=== PATIENT | female | born 1980 | race Caucasian/White ===

== ENCOUNTER 2017-04-15 19:32 | Emergency (ER) | payer OTHER ==
[~2017-04-15] VITALS: Wt 108.9 kg
[~2017-04-15 19:32] MED LIST: ALBUTEROL0.09 MG/A2 IH; AMOXICILLIN500 MG PO; AUGMENTIN 500 M1 TAB PO; CLINDAMYCIN HC300 MG PO; CLINDAMYCIN150 MG PO; HYDROCODONE BIT1 T11 PO; KEFLEX500 MG PO; LISINOPRIL-HCTZ 20-1; LISINOPRIL-HYDR1 TA4 PO; MOTRIN800 MG PO; Motrin,Rufen800 MG PO; NAPROSYN500 MG PO; PEN-VEE K500 MG PO; PRENATAL1 TA1 PO; TYLENOL 8 HOUR650 MG PO; ZESTRIL20 MG PO; ZYRTEC10 M1 PO
[2017-04-15] MEDS ORDERED: NAPROSYN500 MG PO (19:54)
[2017-04-15] MEDS ORDERED: MEDROL DOSEPAK4 MG PO (19:54)
[2017-04-15] MEDS ORDERED: CYCLOBENZAPRINE10 MG PO (19:54)
== END 2017-04-15 19:59 | disposition home or self-care (01) ==
LOC: ED 19:32
DX: M79.605 Pain in left leg (principal); M25.552 Pain in left hip; F17.200 Nicotine dependence, unspecified, uncomplicated

== ENCOUNTER 2021-02-28 18:21 | Emergency (ER) | payer SELFPAY ==
[~2021-02-28] VITALS: Wt 121.6 kg
[~2021-02-28 18:21] MED LIST changes: +CYCLOBENZAPRINE10 MG PO; +MEDROL DOSEPAK4 MG PO
[2021-02-28 19:03] LABS: BASO # 0.1 10*3/uL (0.0-0.1); BASO % 0.6 % (0.0-1.0); EOS # 0.1 10*3/uL (0.0-0.4); EOS % 1.1 % (1.0-4.0); HEMATOCRIT 48.2 % (37.0-47.0); LYMPH # 2.1 10*3/uL (1.3-4.4); LYMPH % 26.6 % (27.0-41.0); MEAN CELL VOLUME 87.6 fl (81.0-99.0); MEAN CORPUSCULAR HGB 30.5 pg (27.0-31.0); MEAN CORPUSCULAR HGB CONC 34.9 g/dl (33.0-37.0); MONO # 0.7 10*3/uL (0.1-1.0); MONO % 9.1 % (3.0-9.0); NEUT % 62.3 % (47.0-73.0); PLATELET COUNT AUTOMATED 194 10*3/uL (130-400); RED CELL DISTRI WIDTH 11.9 % (0-14.5)
[2021-02-28 19:20] LABS: ALBUMIN 3.3 gm/dl (3.1-4.5); ALKALINE PHOSPHATASE 118 U/L (45-117); BUN 8 mg/dl (7-24); CHLORIDE 99 mmol/L (98-107); CREATININE 0.55 mg/dL (0.55-1.02); POTASSIUM 3.8 mmol/L (3.5-5.1); SGOT/AST 39 IU/L (3-35); SGPT/ALT 59 U/L (12-78); SODIUM 133 mmol/L (136-145); TOTAL PROTEIN 7.9 gm/dL (6.4-8.2)
[2021-02-28 19:23] LABS: TROPONIN I < 0.015 ng/ml (<0.045)
[2021-02-28 20:09] LABS: BILIRUBIN Negative (Negative); BLOOD 3+ (Negative); CLARITY Clear (Clear); COLOR Yellow (Yellow); GLUCOSE 3+ (Negative); KETONE Trace (Negative); LEUKO ESTERASE 1+ (Negative); NITRITE Negative (Negative); SPECIFIC GRAVITY 1.025 (1.001-1.030)
[2021-02-28 20:32] LABS: BACTERIA 3+
== END 2021-02-28 20:57 | disposition home or self-care (01) ==
LOC: ED 18:21
PROVIDERS: Physician Assistant
DX: R73.9 Hyperglycemia, unspecified (principal); R42 Dizziness and giddiness; Z79.899 Other long term (current) drug therapy

== ENCOUNTER 2021-05-09 04:42 | Emergency (ER) | payer SELFPAY ==
[~2021-05-09] VITALS: Ht 172.7 cm; Wt 64.4 kg
== END 2021-05-09 06:51 | disposition home or self-care (01) ==
LOC: ED 04:42
DX: F41.9 Anxiety disorder, unspecified (principal)

== ENCOUNTER 2021-09-05 11:15 | Emergency (ER) | payer SELFPAY ==
[~2021-09-05] VITALS: Wt 92.5 kg
[2021-09-05 12:08] LABS: EOS % 0.3 % (1.0-4.0); HEMATOCRIT 43.7 % (37.0-47.0); LYMPH % 27.2 % (27.0-41.0); MEAN CELL VOLUME 86.9 fl (81.0-99.0); MEAN CORPUSCULAR HGB 30.4 pg (27.0-31.0); MEAN PLATELET VOLUME 9.5 fl (9.6-12.3); MONO # 0.6 10*3/uL (0.1-1.0); MONO % 15.7 % (3.0-9.0); NEUT # 2.1 10*3/uL (2.3-7.9); NEUT % 55.3 % (47.0-73.0); PLATELET COUNT AUTOMATED 213 10*3/uL (130-400); RED BLOOD COUNT 5.03 10*6/uL (4.10-5.10); RED CELL DISTRI WIDTH 12.1 % (0-14.5); WHITE BLOOD COUNT 3.8 10*3/uL (4.8-10.8)
[2021-09-05 12:23] LABS: ALKALINE PHOSPHATASE 84 U/L (45-117); BUN 10 mg/dl (7-24); CHLORIDE 101 mmol/L (98-107); CREATININE 0.55 mg/dL (0.55-1.02); POTASSIUM 3.9 mmol/L (3.5-5.1); SGOT/AST 21 IU/L (3-35); SGPT/ALT 35 U/L (12-78); SODIUM 132 mmol/L (136-145); TOTAL PROTEIN 8.4 gm/dL (6.4-8.2)
== END 2021-09-05 14:48 | disposition home or self-care (01) ==
LOC: ED 11:15
PROVIDERS: Physician Assistant
DX: R05.9 Cough, unspecified (principal); Z20.822 Contact with and (suspected) exposure to COVID-19; R06.02 Shortness of breath

== ENCOUNTER 2024-01-20 12:06 | Emergency (ER) | payer MEDICAID ==
[~2024-01-20] VITALS: Ht 172.7 cm; Wt 104.3 kg
[2024-01-20] MEDS ORDERED: CLINDAMYCIN HC300 MG PO (14:01)
== END 2024-01-20 14:14 | disposition home or self-care (01) ==
LOC: ED 12:06
DX: K04.7 Periapical abscess without sinus (principal); J45.909 Unspecified asthma, uncomplicated; I10 Essential (primary) hypertension; Z90.89 Acquired absence of other organs

== ENCOUNTER 2025-05-14 11:39 | Emergency (ER) | payer OTHER ==
[~2025-05-14] VITALS: Ht 170.1 cm; Wt 108.9 kg
[2025-05-14] MEDS ORDERED: IOHEXOL 300 MG/ML 100 ML VIAL IV ONE (12:35)
[2025-05-14] MEDS ORDERED: SODIUM CHLORIDE 0.9% 1,000 ML IV ONE (12:35)
[2025-05-14 12:45] LABS: BASO # 0.0 10*3/uL (0.0-0.1); BASO % 0.5 % (0.0-1.0); EOS # 0.0 10*3/uL (0.0-0.4); EOS % 0.5 % (1.0-4.0); MEAN CELL VOLUME 92.4 fl (81.0-99.0); MEAN CORPUSCULAR HGB 31.3 pg (27.0-31.0); MEAN PLATELET VOLUME 10.2 fl (9.6-12.3); MONO # 0.6 10*3/uL (0.1-1.0); MONO % 9.0 % (3.0-9.0); NEUT # 4.1 10*3/uL (2.3-7.9); NEUT % 65.5 % (47.0-73.0); NUCLEATED RED BLOOD CELL 0.0 % (0.0-0.0); NUCLEATED RED BLOOD CELL 0.0 10*3/uL (0.0-0.0); PLATELET COUNT AUTOMATED 168 10*3/uL (130-400); RED CELL DISTRI WIDTH 12.7 % (0-14.5)
[2025-05-14 13:07] LABS: BUN < 5 mg/dl (9-23)
[2025-05-14] MEDS ORDERED: PREDNISONE20 M1 PO (15:26)
[2025-05-14] MEDS ORDERED: CLEOCIN HCL150 MG PO (15:26)
[2025-05-14] MEDS ORDERED: predniSONE 20 MG TAB PO ONE (15:30)
== END 2025-05-14 15:33 | disposition home or self-care (01) ==
LOC: ED 11:39
PROVIDERS: Nurse Practitioner Family
DX: K04.7 Periapical abscess without sinus (principal); Z79.899 Other long term (current) drug therapy